=== PATIENT | male | born 1955 | race Caucasian/White ===

== ENCOUNTER 2018-05-14 18:30 | Inpatient (IN) | payer MEDICARE, OTHER ==
[~2018-05-14] VITALS: Ht 175.3 cm; Wt 91.0 kg
[2018-05-14 19:19] LABS: BASOPHILS % (AUTO) 0.3 % (0-1); EOSINOPHILS % (AUTO) 0.3 % (0-6); HEMOGLOBIN 17.3 g/dl (14.0-17.9); LYMPHOCYTES # (AUTO) 2.3 X10'3 (1.1-4.8); LYMPHOCYTES % (AUTO) 18.7 % (21-51); MEAN CORPUSCULAR HEMOGLOBIN 32.1 PG (27.0-31.0); MEAN CORPUSCULAR HGB CONC 34.5 % (33.0-36.5); MEAN CORPUSCULAR VOLUME 93.2 FL (78-98); MEAN PLATELET VOLUME 7.3 FL (7.4-10.4); MONOCYTES # (AUTO) 1.1 X10'3 (0-0.9); MONOCYTES % (AUTO) 8.9 % (2-12); NEUTROPHILS # (AUTO) 8.7 X10'3 (1.8-7.7); NEUTROPHILS % (AUTO) 71.8 % (42-75); PLATELET COUNT 257 X10'3 (140-440); RED BLOOD COUNT 5.37 X10'6 (4.70-6.10); RED CELL DISTRIBUTION WIDTH 13.3 % (11.5-14.5); WHITE BLOOD COUNT 12.1 X10'3 (4.5-11.0)
[2018-05-14] MEDS ORDERED: normal saline 1000ML IV soln IV ONE (19:25)
[2018-05-14 19:31] LABS: PARTIAL THROMBOPLASTIN TIME 25 SECONDS (22-32); PROTHROMBIN TIME 10.7 SECONDS (9.0-12.0)
[2018-05-14 19:38] LABS: ALANINE AMINOTRANSFERASE 28 U/L (12-78); ALBUMIN 4.3 G/DL (3.4-5.0); ALKALINE PHOSPHATASE 115 IU/L (46-116); ANION GAP 17 (8-16); ASPARTATE AMINO TRANSFERASE 11 U/L (10-37); BILIRUBIN,TOTAL 1.4 MG/DL (0.1-1.0); BLOOD UREA NITROGEN 18 MG/DL (7-18); BUN/CREATININE RATIO 9.6 (5.4-32.0); CALCIUM 10.1 MG/DL (8.5-10.1); CHLORIDE 99 MMOL/L (99-107); CREATININE 1.87 MG/DL (0.60-1.10); GLUCOSE 307 MG/DL (70-104); POTASSIUM 3.6 MMOL/L (3.5-5.1); SODIUM 136 MMOL/L (135-145); TOTAL CARBON DIOXIDE 20.5 MMOL/L (24-32); TOTAL PROTEIN 8.5 G/DL (6.4-8.2); eGFR 37 ML/MIN
[2018-05-14] MEDS ORDERED: LIDOcaine 2% 10ml TOPICAL JELLY (Urojet) MM ONE (19:40)
[2018-05-14 20:02] LABS: MAGNESIUM 1.6 MG/DL (1.5-2.4)
[2018-05-14] MEDS ORDERED: INSU100C4 SQ (21:33)
[2018-05-14] MEDS ORDERED: LISI-600 PO (21:33)
[2018-05-14] MEDS ORDERED: DULO-31 PO (21:33)
[2018-05-14] MEDS ORDERED: FLO0.4C PO (21:33)
[2018-05-14] MEDS ORDERED: INSU300I3 (21:35)
[2018-05-14 21:36] LABS: BASOPHILS # (AUTO) 0.1 X10'3 (0-0.2); BASOPHILS % (AUTO) 0.9 % (0-1); EOSINOPHILS % (AUTO) 0.1 % (0-6); HEMATOCRIT 44.4 % (42.0-52.0); HEMOGLOBIN 15.4 g/dl (14.0-17.9); LYMPHOCYTES # (AUTO) 1.7 X10'3 (1.1-4.8); LYMPHOCYTES % (AUTO) 14.6 % (21-51); MEAN CORPUSCULAR HEMOGLOBIN 32.3 PG (27.0-31.0); MEAN CORPUSCULAR HGB CONC 34.7 % (33.0-36.5); MEAN PLATELET VOLUME 7.1 FL (7.4-10.4); MONOCYTES # (AUTO) 1.1 X10'3 (0-0.9); MONOCYTES % (AUTO) 9.3 % (2-12); NEUTROPHILS # (AUTO) 8.8 X10'3 (1.8-7.7); NEUTROPHILS % (AUTO) 75.1 % (42-75); PLATELET COUNT 187 X10'3 (140-440); RED BLOOD COUNT 4.78 X10'6 (4.70-6.10); RED CELL DISTRIBUTION WIDTH 13.6 % (11.5-14.5); WHITE BLOOD COUNT 11.7 X10'3 (4.5-11.0)
[2018-05-14] MEDS ORDERED: ondansetron/PF 4mg/2ml inj IV PRN (21:50)
[2018-05-14 21:53] LABS: CLARITY,URINE CLEAR (Clear); COLOR,URINE YELLOW (Yellow); GLUCOSE, URINE >=1000 mg/dl (Neg); KETONES,URINE 15 mg/dl (Neg); LEUKOCYTE ESTERASE ,URINE NEGATIVE (Neg); NITRITES, URINE NEGATIVE (Neg); OCCULT BLOOD,URINE NEGATIVE (Neg); PROTEIN,URINE 30 mg/dl (Neg); UA COLLECTION TYPE CLN CATCH MIDSTREAM
[2018-05-14] MEDS ORDERED: dextrose ORAL solution 15 GM/59 ML bottle PO PRN ×2 (21:55)
[2018-05-14] MEDS ORDERED: MESSAGE TO PHARMACY PO ONE (21:55)
[2018-05-14] MEDS ORDERED: dextrose 50%-water 50ml dispensing syringe IV PRN ×2 (21:55)
[2018-05-14] MEDS ORDERED: pantoprazole 40 MG vial IV ONE (21:55)
[2018-05-14] MEDS ORDERED: glucagon, human recombinant 1mg kit SUBCUT PRN (21:55)
[2018-05-14 22:09] LABS: URINE AMPHETAMINE SCREEN POSITIVE (Neg); URINE BARBITUATE SCREEN NEGATIVE (Neg); URINE BENZODIAZEPINES SCREEN NEGATIVE (Neg); URINE CANNABINOID SCREEN NEGATIVE (Neg); URINE COCAINE SCREEN NEGATIVE (Neg); URINE METHADONE SCREEN NEGATIVE (Neg); URINE OPIATE SCREEN POSITIVE (Neg); URINE PHENCYCLIDINE SCREEN NEGATIVE (Neg)
[2018-05-14 22:11] LABS: HEMOGLOBIN A1C 9.4 % (4.5-6.2)
[2018-05-14] MEDS: normal saline 1000ml 1,000 ML IV SCH (22:29)
[2018-05-14 22:33] LABS: BACTERIA,URINE NONE SEEN /HPF (Neg); FINE GRANULAR CAST 0-3 /LPF (NEGATIVE); MUCUS STRANDS NONE SEEN /LPF (Neg); RBC,URINE 0-2 /HPF (0-2); SQUAMOUS EPITHELIAL CELL,UR NONE SEEN /LPF (FEW); WBC,URINE 0-4 /HPF (0-4)
[2018-05-15] VITALS (7 sets, daily range): BP systolic 92–144; BP diastolic 66–83
[2018-05-15 02:18] LABS: BASOPHILS # (AUTO) 0.1 X10'3 (0-0.2); BASOPHILS % (AUTO) 1.4 % (0-1); EOSINOPHILS # (AUTO) 0.1 X10'3 (0-0.9); EOSINOPHILS % (AUTO) 1.1 % (0-6); HEMATOCRIT 39.5 % (42.0-52.0); HEMOGLOBIN 13.9 g/dl (14.0-17.9); LYMPHOCYTES # (AUTO) 2.4 X10'3 (1.1-4.8); LYMPHOCYTES % (AUTO) 27.6 % (21-51); MEAN CORPUSCULAR HEMOGLOBIN 32.6 PG (27.0-31.0); MEAN CORPUSCULAR HGB CONC 35.1 % (33.0-36.5); MEAN CORPUSCULAR VOLUME 92.9 FL (78-98); MEAN PLATELET VOLUME 7.1 FL (7.4-10.4); MONOCYTES # (AUTO) 0.9 X10'3 (0-0.9); MONOCYTES % (AUTO) 10.2 % (2-12); NEUTROPHILS # (AUTO) 5.1 X10'3 (1.8-7.7); NEUTROPHILS % (AUTO) 59.7 % (42-75); PLATELET COUNT 153 X10'3 (140-440); RED BLOOD COUNT 4.26 X10'6 (4.70-6.10); RED CELL DISTRIBUTION WIDTH 13.4 % (11.5-14.5); WHITE BLOOD COUNT 8.6 X10'3 (4.5-11.0)
[2018-05-15] MEDS: normal saline 1000ml 1,000 ML IV SCH ×5 (02:18→16:42)
[2018-05-15 02:40] LABS: ALANINE AMINOTRANSFERASE 23 U/L (12-78); ALBUMIN 3.3 G/DL (3.4-5.0); ALKALINE PHOSPHATASE 83 IU/L (46-116); ANION GAP 7 (8-16); ASPARTATE AMINO TRANSFERASE 15 U/L (10-37); BILIRUBIN,TOTAL 0.9 MG/DL (0.1-1.0); BLOOD UREA NITROGEN 21 MG/DL (7-18); BUN/CREATININE RATIO 16.4 (5.4-32.0); CALCIUM 8.6 MG/DL (8.5-10.1); CHLORIDE 108 MMOL/L (99-107); CREATININE 1.28 MG/DL (0.60-1.10); GLUCOSE 173 MG/DL (70-104); POTASSIUM 3.3 MMOL/L (3.5-5.1); SODIUM 139 MMOL/L (135-145); TOTAL CARBON DIOXIDE 24.3 MMOL/L (24-32); TOTAL PROTEIN 6.6 G/DL (6.4-8.2); eGFR 57 ML/MIN
[2018-05-15] MEDS: duloxetine 30mg CAPSULE.DR PO SCH (08:00)
[2018-05-15] MEDS: insulin Lispro (HumaLOG) vial - multi-dose SQ SCH ×4 (08:01→19:12)
[2018-05-15] MEDS ORDERED: magnesium 1gm/100ml D5W IVPB 100 ML IV PRN (09:55)
[2018-05-15] MEDS ORDERED: magnesium 4gm in 100ml NS 100 ML IV PRN (09:55)
[2018-05-15] MEDS ORDERED: magnesium Cl slow-release 64mg tablet PO PRN (09:55)
[2018-05-15] MEDS ORDERED: potassium Cl 40MEQ/NS 500ml 500 ML IV PRN ×2 (09:55)
[2018-05-15] MEDS ORDERED: potassium Cl 20 mEq SR tablet PO PRN (09:55)
[2018-05-15] MEDS ORDERED: ketorolac tromethamine 15mg/ml inj. IV PRN (14:00)
[2018-05-15] MEDS: potassium Cl 20 mEq SR tablet PO PRN ×2 (14:20→19:11)
[2018-05-15] MEDS ORDERED: insulin glargine (Lantus) pen - multi-dose SQ SCH (21:00)
[2018-05-15] MEDS: enoxaparin 40mg/0.4ml syringe SUBCUT SCH (22:10)
[2018-05-16] MEDS: normal saline 1000ml 1,000 ML IV SCH ×3 (02:58→07:44)
[2018-05-16 03:00] VITALS: BP 157/88
[2018-05-16 05:32] LABS: BASOPHILS % (AUTO) 0.5 % (0-1); EOSINOPHILS # (AUTO) 0.1 X10'3 (0-0.9); EOSINOPHILS % (AUTO) 2.5 % (0-6); HEMATOCRIT 36.4 % (42.0-52.0); HEMOGLOBIN 12.9 g/dl (14.0-17.9); LYMPHOCYTES # (AUTO) 1.7 X10'3 (1.1-4.8); LYMPHOCYTES % (AUTO) 29.4 % (21-51); MEAN CORPUSCULAR HGB CONC 35.4 % (33.0-36.5); MEAN CORPUSCULAR VOLUME 93.3 FL (78-98); MEAN PLATELET VOLUME 7.2 FL (7.4-10.4); MONOCYTES # (AUTO) 0.5 X10'3 (0-0.9); MONOCYTES % (AUTO) 8.3 % (2-12); NEUTROPHILS # (AUTO) 3.4 X10'3 (1.8-7.7); NEUTROPHILS % (AUTO) 59.3 % (42-75); PLATELET COUNT 124 X10'3 (140-440); RED CELL DISTRIBUTION WIDTH 13.4 % (11.5-14.5); WHITE BLOOD COUNT 5.7 X10'3 (4.5-11.0)
[2018-05-16 05:37] LABS: ALANINE AMINOTRANSFERASE 18 U/L (12-78); ALBUMIN 2.8 G/DL (3.4-5.0); ALBUMIN/GLOBULIN RATIO 0.9 (1.1-1.5); ALKALINE PHOSPHATASE 73 IU/L (46-116); ANION GAP 10 (8-16); ASPARTATE AMINO TRANSFERASE 11 U/L (10-37); BILIRUBIN,TOTAL 0.3 MG/DL (0.1-1.0); BLOOD UREA NITROGEN 18 MG/DL (7-18); BUN/CREATININE RATIO 19.6 (5.4-32.0); CALCIUM 8.4 MG/DL (8.5-10.1); CHLORIDE 111 MMOL/L (99-107); CREATININE 0.92 MG/DL (0.60-1.10); GLUCOSE 187 MG/DL (70-104); MAGNESIUM 1.5 MG/DL (1.5-2.4); POTASSIUM 3.8 MMOL/L (3.5-5.1); SODIUM 143 MMOL/L (135-145); TOTAL CARBON DIOXIDE 22.2 MMOL/L (24-32); TOTAL PROTEIN 5.9 G/DL (6.4-8.2); eGFR 83 ML/MIN
[2018-05-16 06:00] VITALS: BP 143/80
[2018-05-16] MEDS: duloxetine 30mg CAPSULE.DR PO SCH (07:37)
[2018-05-16] MEDS: enoxaparin 40mg/0.4ml syringe SUBCUT SCH (07:37)
[2018-05-16] MEDS: insulin Lispro (HumaLOG) vial - multi-dose SQ SCH (09:25)
== END 2018-05-16 11:22 | disposition home or self-care (01) | DRG 683 ==
LOC: ER 18:30 → ED HOLD 21:46 → PCU 3S 23:50
PROVIDERS: ADMIT Internal Medicine; ATTEND Family Medicine
DX: N17.9 Acute kidney failure, unspecified (principal); E44.0 Moderate protein-calorie malnutrition; E87.2 Acidosis; R55 Syncope and collapse; E86.0 Dehydration; I95.9 Hypotension, unspecified; E87.6 Hypokalemia; B18.2 Chronic viral hepatitis C; F15.10 Other stimulant abuse, uncomplicated; F14.10 Cocaine abuse, uncomplicated; E11.65 Type 2 diabetes mellitus with hyperglycemia; F17.200 Nicotine dependence, unspecified, uncomplicated; I10 Essential (primary) hypertension; J44.9 Chronic obstructive pulmonary disease, unspecified; K74.60 Unspecified cirrhosis of liver; Z59.0 Homelessness; Z72.820 Sleep deprivation; Z68.29 Body mass index [BMI] 29.0-29.9, adult; Z79.899 Other long term (current) drug therapy
CPT/HCPCS: 36415; 71045; 80053; 80305; 81001; 82948; 83036; 83605; 83735; 83880; 84145; 84484; 85025; 85379; 85610; 85730; 87040; 93005; 93306; 96360; 97116; 97161; 99285; A4353; C9113; J1650; J1815; J1885; J7030

== ENCOUNTER 2018-06-02 19:53 | Inpatient (IN) | payer MEDICARE, OTHER ==
[~2018-06-02] VITALS: Ht 175.3 cm; Wt 70.1 kg
[~2018-06-02 19:53] MED LIST: DULO-31 PO; FLO0.4C PO; INSU100C4 SQ; INSU300I3; LISI-600 PO
[2018-06-02] MEDS ORDERED: ondansetron/PF 4mg/2ml inj IV ONE (20:40)
[2018-06-02] MEDS ORDERED: ketorolac trometh. 30mg/ml inj. IV ONE (20:40)
[2018-06-02] MEDS ORDERED: normal saline 1000ML IV soln IVB ONE (20:40)
[2018-06-02] MEDS ORDERED: temazepam 15mg capsule PO PRN (21:00)
[2018-06-02 21:26] LABS: BASOPHILS % (AUTO) 0.6 % (0-1); EOSINOPHILS # (AUTO) 0.1 X10'3 (0-0.9); EOSINOPHILS % (AUTO) 1.4 % (0-6); HEMATOCRIT 40.3 % (42.0-52.0); HEMOGLOBIN 14.2 g/dl (14.0-17.9); LYMPHOCYTES # (AUTO) 2.7 X10'3 (1.1-4.8); LYMPHOCYTES % (AUTO) 34.3 % (21-51); MEAN CORPUSCULAR HEMOGLOBIN 31.9 PG (27.0-31.0); MEAN CORPUSCULAR HGB CONC 35.3 % (33.0-36.5); MEAN CORPUSCULAR VOLUME 90.5 FL (78-98); MEAN PLATELET VOLUME 7.7 FL (7.4-10.4); MONOCYTES # (AUTO) 0.7 X10'3 (0-0.9); MONOCYTES % (AUTO) 9.2 % (2-12); NEUTROPHILS # (AUTO) 4.3 X10'3 (1.8-7.7); NEUTROPHILS % (AUTO) 54.5 % (42-75); PLATELET COUNT 230 X10'3 (140-440); RED BLOOD COUNT 4.45 X10'6 (4.70-6.10); RED CELL DISTRIBUTION WIDTH 13.2 % (11.5-14.5); WHITE BLOOD COUNT 7.8 X10'3 (4.5-11.0)
[2018-06-02 21:36] LABS: INR 1.1 INR; PARTIAL THROMBOPLASTIN TIME 25 SECONDS (22-32)
[2018-06-02 21:51] LABS: ALANINE AMINOTRANSFERASE 34 U/L (12-78); ALBUMIN/GLOBULIN RATIO 1.1 (1.1-1.5); ALKALINE PHOSPHATASE 110 IU/L (46-116); ANION GAP 11 (8-16); ASPARTATE AMINO TRANSFERASE 16 U/L (10-37); BILIRUBIN,TOTAL 0.8 MG/DL (0.1-1.0); BLOOD UREA NITROGEN 11 MG/DL (7-18); BUN/CREATININE RATIO 9.3 (5.4-32.0); CALCIUM 9.4 MG/DL (8.5-10.1); CHLORIDE 96 MMOL/L (99-107); CREATINE KINASE 129 U/L (39-308); CREATININE 1.18 MG/DL (0.60-1.10); ETHANOL < 0.010 GM/DL (0.0-0.010); GLUCOSE 362 MG/DL (70-104); MAGNESIUM 1.4 MG/DL (1.5-2.4); PHOSPHORUS 2.4 MG/DL (2.3-4.5); SODIUM 135 MMOL/L (135-145); TOTAL CARBON DIOXIDE 28.4 MMOL/L (24-32); TOTAL PROTEIN 7.7 G/DL (6.4-8.2); eGFR 62 ML/MIN
[2018-06-02 21:59] LABS: ACETAMINOPHEN < 2.0 UG/ML (10-30)
[2018-06-02 22:02] LABS: POTASSIUM 2.5 MMOL/L (3.5-5.1)
[2018-06-02] MEDS ORDERED: insulin regular, human 10 units/0.1 ml syringe SQ ONE (22:05)
[2018-06-02] MEDS ORDERED: magnesium 4gm in 100ml NS 100 ML IV ONE (22:25)
[2018-06-02] MEDS ORDERED: MESSAGE TO PHARMACY PO ONE (23:30)
[2018-06-02] MEDS ORDERED: diphenhydrAMINE 25mg capsule PO PRN (23:30)
[2018-06-02] MEDS ORDERED: metoclopramide 5 mg/ml inj IV PRN (23:30)
[2018-06-02] MEDS ORDERED: dextrose ORAL solution 15 GM/59 ML bottle PO PRN ×2 (23:30)
[2018-06-02] MEDS ORDERED: ondansetron/PF 4mg/2ml inj IV PRN (23:30)
[2018-06-02] MEDS ORDERED: mag hydrox/Alum hydrox/simeth 30ml oral suspension PO PRN (23:30)
[2018-06-02] MEDS ORDERED: diphenhydrAMINE 50 mg/ml inj IV PRN (23:30)
[2018-06-02] MEDS ORDERED: acetaminophen 325mg tablet PO PRN (23:30)
[2018-06-02] MEDS ORDERED: potassium Cl 40MEQ/NS 500ml 500 ML IV PRN ×2 (23:30)
[2018-06-02] MEDS ORDERED: acetaminophen 650mg rectal suppository RC PRN (23:30)
[2018-06-02] MEDS ORDERED: morphine 2 MG/ML inj. syringe IV PRN ×2 (23:30)
[2018-06-02] MEDS ORDERED: HYDROcodone/acetaminophen 10/325mg tab PO PRN (23:30)
[2018-06-02] MEDS ORDERED: bisacodyl 10mg suppository rectal RC PRN (23:30)
[2018-06-02] MEDS ORDERED: potassium Cl 20 mEq SR tablet PO PRN (23:30)
[2018-06-02] MEDS ORDERED: magnesium Cl slow-release 64mg tablet PO PRN (23:30)
[2018-06-02] MEDS ORDERED: magnesium 1gm/100ml D5W IVPB 100 ML IV PRN (23:30)
[2018-06-02] MEDS ORDERED: dextrose 50%-water 50ml dispensing syringe IV PRN ×2 (23:30)
[2018-06-02] MEDS ORDERED: glucagon, human recombinant 1mg kit SUBCUT PRN (23:30)
[2018-06-02] MEDS ORDERED: HYDROcodone/acetaminophen 5mg/325mg tablet PO PRN (23:30)
[2018-06-02] MEDS ORDERED: magnesium hydroxide 30ml (MOM) UD suspension PO PRN (23:30)
[2018-06-02] MEDS ORDERED: magnesium 4gm in 100ml NS 100 ML IV PRN (23:30)
[2018-06-03] MEDS: potassium Cl 20 mEq SR tablet PO PRN ×3 (00:01→11:01)
[2018-06-03] MEDS: insulin Lispro (HumaLOG) vial - multi-dose SQ SCH ×3 (00:01→13:54)
[2018-06-03 00:02] LABS: HEMOGLOBIN A1C 9.8 % (4.5-6.2)
[2018-06-03] MEDS: nicotine 21mg patch - 24 hr TD SCH ×2 (00:02→08:02)
[2018-06-03] MEDS: sodium chloride 0.45% 1,000 ML IV SCH ×2 (00:02→09:05)
[2018-06-03 00:08] LABS: OSMOLALITY 305 MOSM/K (280-300)
[2018-06-03] MEDS: K and/or MAG REPLACEMENT MC SCH ×2 (00:13→08:03)
[2018-06-03 00:14] LABS: LIPASE 172 U/L (73-393)
[2018-06-03 00:52] LABS: CLARITY,URINE CLEAR (Clear); COLOR,URINE YELLOW (Yellow); GLUCOSE, URINE >=1000 mg/dl (Neg); KETONES,URINE TRACE mg/dl (Neg); LEUKOCYTE ESTERASE ,URINE NEGATIVE (Neg); NITRITES, URINE NEGATIVE (Neg); OCCULT BLOOD,URINE NEGATIVE (Neg); PROTEIN,URINE NEGATIVE (Neg); UROBILINOGEN,URINE 0.2 E.U/dL (0.2-1.0)
[2018-06-03 00:55] VITALS: BP 117/71
[2018-06-03 00:55] LABS: URINE AMPHETAMINE SCREEN POSITIVE (Neg); URINE BARBITUATE SCREEN NEGATIVE (Neg); URINE BENZODIAZEPINES SCREEN NEGATIVE (Neg); URINE CANNABINOID SCREEN NEGATIVE (Neg); URINE COCAINE SCREEN NEGATIVE (Neg); URINE METHADONE SCREEN NEGATIVE (Neg); URINE OPIATE SCREEN NEGATIVE (Neg); URINE PHENCYCLIDINE SCREEN NEGATIVE (Neg)
[2018-06-03 01:00] LABS: UA COLLECTION TYPE CLN CATCH MIDSTREAM
[2018-06-03 01:02] LABS: BACTERIA,URINE FEW /HPF (Neg); RBC,URINE 0-2 /HPF (0-2); SQUAMOUS EPITHELIAL CELL,UR FEW /LPF (FEW); WBC,URINE NONE SEEN /HPF (0-4)
[2018-06-03] MEDS ORDERED: guaiFENesin/DM 10ml UD oral syrup PO PRN (03:00)
[2018-06-03] MEDS ORDERED: benzonatate 100mg capsule PO PRN (03:00)
[2018-06-03 03:08] LABS: BASOPHILS % (AUTO) 0.7 % (0-1); EOSINOPHILS # (AUTO) 0.1 X10'3 (0-0.9); EOSINOPHILS % (AUTO) 2.3 % (0-6); HEMATOCRIT 36.8 % (42.0-52.0); HEMOGLOBIN 12.9 g/dl (14.0-17.9); LYMPHOCYTES % (AUTO) 35.8 % (21-51); MEAN CORPUSCULAR HGB CONC 34.9 % (33.0-36.5); MEAN CORPUSCULAR VOLUME 91.6 FL (78-98); MEAN PLATELET VOLUME 7.7 FL (7.4-10.4); MONOCYTES # (AUTO) 0.6 X10'3 (0-0.9); MONOCYTES % (AUTO) 11.3 % (2-12); NEUTROPHILS # (AUTO) 2.8 X10'3 (1.8-7.7); NEUTROPHILS % (AUTO) 49.9 % (42-75); PLATELET COUNT 177 X10'3 (140-440); RED BLOOD COUNT 4.02 X10'6 (4.70-6.10); RED CELL DISTRIBUTION WIDTH 13.3 % (11.5-14.5); WHITE BLOOD COUNT 5.6 X10'3 (4.5-11.0)
[2018-06-03 03:31] LABS: ALANINE AMINOTRANSFERASE 27 U/L (12-78); ALBUMIN 3.2 G/DL (3.4-5.0); ALKALINE PHOSPHATASE 90 IU/L (46-116); ANION GAP 8 (8-16); ASPARTATE AMINO TRANSFERASE 16 U/L (10-37); BILIRUBIN,TOTAL 0.5 MG/DL (0.1-1.0); BLOOD UREA NITROGEN 16 MG/DL (7-18); BUN/CREATININE RATIO 11.8 (5.4-32.0); CALCIUM 8.6 MG/DL (8.5-10.1); CHLORIDE 100 MMOL/L (99-107); CREATININE 1.36 MG/DL (0.60-1.10); GLUCOSE 284 MG/DL (70-104); MAGNESIUM 2.6 MG/DL (1.5-2.4); SODIUM 138 MMOL/L (135-145); TOTAL CARBON DIOXIDE 30.5 MMOL/L (24-32); TOTAL PROTEIN 6.3 G/DL (6.4-8.2); eGFR 53 ML/MIN
[2018-06-03 03:43] LABS: POTASSIUM 2.8 MMOL/L (3.5-5.1)
[2018-06-03] MEDS ORDERED: azithromycin 250mg tablet PO SCH (08:00)
[2018-06-03] MEDS ORDERED: docusate sod 100mg capsule PO SCH (08:00)
[2018-06-03] MEDS ORDERED: tamsulosin 0.4mg capsule PO SCH (08:00)
[2018-06-03] MEDS ORDERED: duloxetine 30mg CAPSULE.DR PO SCH (08:00)
[2018-06-03] MEDS ORDERED: lisinopril 20mg tablet PO SCH (08:00)
[2018-06-03] MEDS ORDERED: heparin, porcine 5000 units/ml vial SQ SCH (08:00)
[2018-06-03] MEDS ORDERED: famotidine 20mg tablet PO SCH (08:00)
[2018-06-03] MEDS ORDERED: methylPREDNISolone sod succ 125mg/2ml vial IV SCH (08:00)
[2018-06-03] MEDS ORDERED: BENZ-16 PO (15:52)
[2018-06-03] MEDS ORDERED: LACT1CAP26 PO (15:52)
[2018-06-03] MEDS ORDERED: POTA20TA19 PO (15:52)
[2018-06-03] MEDS ORDERED: AZI25OT PO (15:52)
[2018-06-03] MEDS ORDERED: PRED10TA23 PO (15:52)
[2018-06-03] MEDS ORDERED: FAMO20TA8 PO (15:52)
[2018-06-03] MEDS ORDERED: ALBU8HFA PO (16:04)
[2018-06-03] MEDS ORDERED: lactobacillus rhamnosus 10,000 MMU CELLS/CAPSULE PO SCH (20:00)
== END 2018-06-03 18:00 | disposition home or self-care (01) | DRG 638 ==
LOC: ER 19:53 → ED HOLD 23:27 → SUR 3N 06-03 00:55
PROVIDERS: ADMIT Family Medicine; ATTEND Family Medicine
DX: E11.65 Type 2 diabetes mellitus with hyperglycemia (principal); J44.1 Chronic obstructive pulmonary disease with (acute) exacerbation; E83.42 Hypomagnesemia; E86.0 Dehydration; F10.20 Alcohol dependence, uncomplicated; E87.6 Hypokalemia; Y90.0 Blood alcohol level of less than 20 mg/100 ml; F11.90 Opioid use, unspecified, uncomplicated; F15.10 Other stimulant abuse, uncomplicated; F17.200 Nicotine dependence, unspecified, uncomplicated; I10 Essential (primary) hypertension; B19.20 Unspecified viral hepatitis C without hepatic coma; K74.60 Unspecified cirrhosis of liver; N28.9 Disorder of kidney and ureter, unspecified; Z79.899 Other long term (current) drug therapy; Z87.01 Personal history of pneumonia (recurrent); Z79.4 Long term (current) use of insulin; Z71.6 Tobacco abuse counseling; Z71.51 Drug abuse counseling and surveillance of drug abuser
CPT/HCPCS: 36415; 71045; 80053; 80305; 80320; 80329; 81001; 82140; 82550; 82948; 83036; 83690; 83735; 83880; 83930; 84100; 84132; 84443; 84484; 85025; 85610; 85730; 87070; 94760; 96365; 96366; 96375; 99285; J1644; J1815; J1885; J2270; J2405; J2930; J3475; J7030